=== PATIENT | female | born 1955 | race Caucasian/White ===

== ENCOUNTER 2019-06-22 15:23 | Emergency (ER) | payer SELFPAY ==
[2019-06-22 15:24] VITALS: BP 150/88; PULSE 89; RESP 16; TEMP 37; O2SAT 100; BMI 28.2
--- NOTE | 2019-06-22 15:46 | RAD_ITS ---
STUDY: X-RAY - LEFT ANKLE REASON FOR EXAM: Female, 63 years old. Lateral pain TECHNIQUE: 3 view(s) of the ankle. COMPARISON: None. FINDINGS: Normal visualized distal tibia and fibula. Normal medial and lateral malleoli. Normal tibiotalar articulation and ankle mortise. Normal visualized talus and calcaneus. The visualized subtalar, talonavicular, calcaneocuboid and tarsal articulations are normal. The soft tissue structures are unremarkable. RAD/Ankle min 3 Views IMPRESSION: Normal x-ray examination of the ankle. Electronically Signed: Hilario Randle MD at 16:10 EDT , Service support ,
--- NOTE | 2019-06-22 15:49 | ED.VISSUMM ---
- ER Visit Summary Date of Service: 06/22/19 Chief Complaint: Left lateral ankle pain History of Present Illness: The patient is a 63 F past medical history of restless leg and depression. Today around 10:30 AM she was walking in her living room there is one step to go down. When she stepped down she twisted her left ankle and inverted her foot. She is a pain and injury to the left lateral malleolus. She is unable to bear weight. She is never had an ankle injury or surgery. She has had a tibial plateau fracture his left knee x2 but did not injure her left knee or hip. Denies any other injuries. Did not hit her head. Physical Examination: Well-appearing female vital signs are stable afebrile. HEENT exam unremarkable. Atraumatic. Neck nontender. Lungs clear to auscultation. Chest nontender. Abdomen soft nontender. Heart is regular and rhythm no murmur. Extremities moves all 4. Neurovascular intact. Left hip and left knee are nontender. Full range of motion. Well-healed surgical scar left knee. Left lateral malleolus is mildly tender and swollen. There is no gross bony deformity. Ecchymosis nontender. Achilles tendon is intact. She is able to dorsi and plantar flexion.. Midportion of left foot to the toes is completely nontender without deformity. She is able to wiggle her toes and has normal touch sensation. Back nontender. Neurologically she is awake alert with no focal motor or sensory deficits. Test Results: Left ankle x-ray 3 views shows no acute abnormality read as normal by myself and the radiologist. Emergency Department Course and Treatment: Patient did not want anything for pain. Repeat exam at 1636 doing well. Patient I went over her x-rays. Treatment Plan: Ice and elevate. Motrin for pain and swelling. Increase weightbearing as tolerated. She already has crutches. All up as needed. Disposition: Discharge Impression: Acute left ankle second-degree sprain This note was generated with [employer] dictation software. It may contain incorrect words, spelling, and punctuation that were not noted in review of the chart prior to signing ED Disposition - Plan for ED Patient: Referrals: Henrry Connolly DO [Primary Care Provider] -
--- NOTE | 2019-06-22 16:37 | ED.DEP ---
ED Disposition - Plan for ED Patient: Disposition: Home or Assisted Living Instructions: Sprain, Ankle, with X-Ray Referrals: Henrry Connolly DO [Primary Care Provider] - 1 Week if not improving Additional Instructions: Ice and elevate. To decrease pain and swelling. Motrin for pain and swelling. Increase activity as tolerated. Follow-up if not improving.
== END 2019-06-22 17:00 | disposition home or self-care (01) ==
PROVIDERS: Emergency Provider Emergency Medicine; Family Provider Family Medicine; PCP Family Medicine
DX: S93.402A Sprain of unspecified ligament of left ankle, initial encounter (principal); X50.1XXA Overexertion from prolonged static or awkward postures, initial encounter; Y93.9 Activity, unspecified; Y92.009 Unspecified place in unspecified non-institutional (private) residence as the place of occurrence of the external cause; Y93.01 Activity, walking, marching and hiking; G25.81 Restless legs syndrome; F32.9 Major depressive disorder, single episode, unspecified; Z72.0 Tobacco use
CPT/HCPCS: 73610; 99283